=== PATIENT | female | born 1995 | race Caucasian/White ===

== ENCOUNTER 2017-12-08 14:36 | Emergency (ER) | payer OTHER ==
[2017-12-08 14:51] VITALS: TEMP 98.5; O2SAT 100
--- NOTE | 2017-12-08 18:03 | CT ---
PROCEDURE: CT HEAD WITHOUT CONTRAST. HISTORY: Headache s/p head injury yesterday COMPARISON: Noncontrast head CT performed 09/19/13 TECHNIQUE: Axial computed tomography images were obtained through the head/brain without intravenous contrast. Radiation dose: Total exam DLP = 829.22 mGy-cm. This CT exam was performed using one or more of the following dose reduction techniques: Automated exposure control, adjustment of the mA and/or kV according to patient size, and/or use of iterative reconstruction technique. FINDINGS: HEMORRHAGE: No intracranial hemorrhage. BRAIN: No mass effect or edema. No atrophy or chronic microvascular ischemic changes. VENTRICLES: No hydrocephalus. CALVARIUM: Unremarkable. PARANASAL SINUSES: Unremarkable as visualized. No significant inflammatory changes. MASTOID AIR CELLS: Unremarkable as visualized. No inflammatory changes. OTHER FINDINGS: Bilateral nasal bone fractures ; displaced and comminuted on right. IMPRESSION: No acute intracranial pathology identified. Bilateral nasal bone fractures ; displaced and comminuted on right. Associated soft tissue swelling.
--- NOTE | 2017-12-08 18:11 | C.PDOC ---
- HPI Time Seen by Provider: 12/08/17 16:48 Chief Complaint (Nursing): Trauma History Per: Patient Injury Occurred (Timing): Days Ago: (1) Description Of Injury (Context): Fell down stairs, hitting her face. Location Of Injury: Right: Face, Anterior: Face Severity: Moderate Additional History Per: Prior Records - Fall Fall:Prior To Injury: Lost Balance Past Medical History Reviewed: Historical Data, Nursing Documentation, Vital Signs Vital Signs: Last Vital Signs Temp 98.5 F 12/08/17 14:48 Pulse 87 12/08/17 18:22 Resp 20 12/08/17 18:22 BP 115/78 12/08/17 18:22 Pulse Ox 100 12/08/17 18:22 - Medical History PMH: No Chronic Diseases Family History: States: Unknown Family Hx - Social History Hx Tobacco Use: No Hx Alcohol Use: No Hx Substance Use: No - Immunization History Hx Tetanus Toxoid Vaccination: No Hx Influenza Vaccination: Yes Hx Pneumococcal Vaccination: No Review Of Systems Except As Marked, All Systems Reviewed And Found Negative. Constitutional: Negative for: Fever, Weakness Cardiovascular: Negative for: Chest Pain Respiratory: Negative for: Shortness of Breath Gastrointestinal: Negative for: Nausea, Vomiting, Abdominal Pain Musculoskeletal: Negative for: Back Pain Skin: Negative for: Rash Neurological: Positive for: Headache. Negative for: Weakness, Numbness Physical Exam - Physical Exam Appears: Non-toxic, No Acute Distress Skin: Normal Color, Warm, Dry, No Rash Head: Atraumatic, Normacephalic Eye(s): bilateral: PERRL, EOMI Ear(s): Bilateral: Normal Nose: No Epistaxis, Tenderness, No Septal Hematoma Neck: Normal ROM, No Midline Cervical Tenderness, No Step Off Deformity, Supple Chest: Symmetrical, No Deformity Cardiovascular: Rhythm Regular Respiratory: Normal Breath Sounds, No Accessory Muscle Use Gastrointestinal/Abdominal: Soft, No Tenderness Back: No Vertebral Tenderness Extremity: Normal ROM, No Deformity Neurological/Psych: Oriented x3, Normal Speech, Normal Cognition, Normal Cranial Nerves, Normal Motor, Normal Sensation ED Course And Treatment O2 Sat by Pulse Oximetry: 100 Pulse Ox Interpretation: Normal - CT Scan/US CT head Other Rad Studies (CT/US): Read By Radiologist, Radiology Report Reviewed CT/US Interpretation: IMPRESSION: No acute intracranial pathology identified. Bilateral nasal bone fractures ; displaced and comminuted on right. Associated soft tissue swelling. CT Facial bones Other Rad Studies (CT/US): Read By Radiologist, Radiology Report Reviewed CT/US Interpretation: Impression: Bilateral nasal bone fractures, comminuted and displaced on the right. Associated soft tissue swelling. Reassessment Condition: Improved Disposition Counseled Patient/Family Regarding: Studies Performed, Diagnosis, Need For Followup, Rx Given - Disposition Referrals: Ryan Guzman MD [Staff Provider] - Disposition: HOME/ ROUTINE Disposition Time: 18:29 Condition: STABLE Additional Instructions: Follow up with an ENT specialist within 1 week for further evaluation and treatment. Return to the ER if you develop worsening of symptoms or if you have any other concerns. Prescriptions: Ibuprofen [Motrin Tab] 600 mg PO TID PRN #30 tab PRN Reason: Pain, Moderate (4-7) Instructions: Nasal Fracture (ED) Forms: [facility] (Serbian) - Clinical Impression Clinical Impression: Fracture of nasal bones
--- NOTE | 2017-12-08 18:12 | CT ---
CT maxillofacial bones without IV contrast Indication: Facial injury, status post fall yesterday Comparison: CT head performed the same day. Maxillofacial CT performed 09/19/13 Technique: Axial computed tomography images were obtained of the maxillofacial bones without the use of intravenous contrast. Coronal and sagittal reformatted images were generated and reviewed. This CT exam was performed using 1 or more of the following dose reduction techniques: Automated exposure control, adjustment of the MAA and/or kV according to patient size, and/or use of iterative reconstruction technique. Radiation dose: Total exam DLP = 712.31 MGy-cm. Findings: Bilateral nasal bone fractures, comminuted and displaced on the right. Associated soft tissue swelling. Remote right orbital wall fracture deformities involving inferior medial newell. The facial bones appear otherwise unremarkable without additional fracture identified. The orbits appear unremarkable. The temporomandibular joints are located. The mastoid air cells appear clear. Paranasal sinuses appear clear. 7 mm submental lymph node and additional scattered lymph nodes throughout the neck, nonspecific. Impression: Bilateral nasal bone fractures, comminuted and displaced on the right. Associated soft tissue swelling.
[2017-12-08 18:23] VITALS: BP 115/78; PULSE 87; RESP 20
== END 2017-12-08 18:38 | disposition home or self-care (01) ==
LOC: C.ER 14:36
DX: S02.2XXA Fracture of nasal bones, initial encounter for closed fracture (principal); W10.8XXA Fall (on) (from) other stairs and steps, initial encounter; Y92.9 Unspecified place or not applicable